=== PATIENT | female | born 1985 | race Caucasian/White ===

== ENCOUNTER 2019-02-27 05:10 | Inpatient (IN) | payer BC ==
[2019-02-27] MEDS ORDERED: METHYLERGONOVINE 0.2 MG/ML 1 ML AMP IM PRN (05:34)
[2019-02-27] MEDS ORDERED: TERBUTALINE 1 MG/ML VIAL SQ PRN (05:34)
[2019-02-27] MEDS ORDERED: LIDOCAINE 0.5% (PF) 5 MG/ML (50 ML SDV) SQ PRN (05:34)
[2019-02-27] MEDS ORDERED: CARBOPROST TROMETHAMINE 250 MCG/ML 1 ML AMP IM PRN (05:34)
[2019-02-27] MEDS ORDERED: OXYTOCIN 10 UNIT/ML 1 ML VIAL IM PRN (05:34)
[2019-02-27] MEDS ORDERED: hydrALAZINE HCL 20 MG/ML 1 ML VIAL IVP PRN ×2 (05:39)
[2019-02-27] MEDS ORDERED: LABETALOL 5 MG/ML VIAL MDV IVP PRN ×2 (05:39)
[2019-02-27] MEDS ORDERED: LACTATED RINGERS 1,000 ML IV SCH (05:45)
[2019-02-27 06:01] VITALS: BMI 47.2
[2019-02-27 06:08] LABS: Basophils % (A) 0 %; Eosinophils # (A) 0.1 k/uL (0-0.7); Eosinophils % (A) 1 %; HCT 32.7 % (34.0-46.0); Lymphocytes # (A) 1.7 k/uL (1.0-4.8); Lymphocytes % (A) 17 %; MCH 28.8 pg (25.0-35.0); MCHC 33.6 g/dL (31.0-37.0); MCV 85.9 fL (80.0-100.0); Mean Platelet Volume 9.1; Monocytes # (A) 0.4 k/uL (0-1.0); Monocytes % (A) 4 %; Neutrophils # (A) 7.5 k/uL (1.3-7.7); Neutrophils % (A) 76 %; Platelet Count 288 k/uL (150-450); RBC 3.81 m/uL (3.80-5.40); RDW 14.2 % (11.5-15.5); WBC 9.9 k/uL (3.8-10.6)
[2019-02-27] MEDS ORDERED: hydrALAZINE HCL 20 MG/ML 1 ML VIAL IVP STA (06:19)
[2019-02-27] MEDS: OXYTOCIN 30 UNITS/500 ML NS 30 UNIT in SALINE 1 500ML.BAG IV SCH (06:21)
[2019-02-27] MEDS ORDERED: CITRIC ACID-SODIUM CITRATE 15 ML CUP PO ONE (06:57)
[2019-02-27 07:02] LABS: INR 0.8 (<1.2); Partial Thromboplastin Time 22.8 sec (22.0-30.0); Prothrombin Time 9.3 sec (9.0-12.0)
[2019-02-27] MEDS ORDERED: CLINDAMYCIN 900 MG in DEXTROSE 5% IN WATER 50 ML IVPB STA ×2 (07:02)
[2019-02-27] MEDS ORDERED: ONDANSETRON 4 MG/2 ML VIAL ONE (07:15)
[2019-02-27] MEDS ORDERED: LACTATED RINGERS 1,000 ML BAG IV ONE (07:15)
[2019-02-27] MEDS ORDERED: KETOROLAC 30 MG/ML 1 ML VIAL ONE (07:15)
[2019-02-27] MEDS ORDERED: MORPHINE SULFATE (PF) 0.3 MG/0.3 ML SYR ONE (07:15)
[2019-02-27] MEDS ORDERED: OXYTOCIN 10 UNIT/ML 1 ML VIAL ONE (07:15)
[2019-02-27] MEDS ORDERED: ePHEDrine SULFATE/0.9% NACL/PF 50 MG/5 ML SYRINGE IV ONE (07:15)
[2019-02-27] MEDS ORDERED: NALBUPHINE 10 MG/ML (1 ML AMP) ONE (07:15)
--- NOTE | 2019-02-27 07:17 | P.HPOB ---
History of Present Illness H&P Date: 02/27/19 Chief Complaint: My water broke at 4:00 this morning This is a 33-year-old female 1 para 0 EDC 03/08/2019 at 38-5/7 weeks' gestation. Patient presented with a history of her water breaking this morning, clear fluid. She is having no uterine contractions. She denies headache, visual changes or right upper quadrant pain. She denies problems with blood pressure during the . history is significant for blood type A positive, rubella status immun e. VDRL testing, urine culture, hepatitis B surface antigen, HIV testing, gonorrhea and chlamydia cultures, group B strep cultures all negative. One-hour Glucola elevated, 3 hour GTT within normal limits. Past medical history is significant for kidney reflux. Past surgical history is negative. Current medications vitamins daily. ALLERGIES include penicillin to which reports severe body hives. Family history significant for hypertension, heart attack, aneurysm. Social history patient is single, boyfriend is present and involved, she is an staff accountant, she has never been a smoker, she denies alcohol or drug use. On exam this is a pleasant white female, 5 foot 6 inches, 292 pounds, blood pressure on admission 181/100. Repeat blood pressure 184/110. 10 mg of hydralazine given, repeat blood pressure 187/92. Second 10 mg of hydralazine given, blood pressure 188/86. Chest is clear in all plascencia. HEENT exam is negative. Abdomen is obviously gravid with a large fundal height, vertex presentation by Prem's. Cervix is 3 cm dilated, 80% effaced, -3 station. Vertex presentation. heart rate is consistent with reactive NST. Extremities reveal +1 edema, +2 to +3 lower extremity reflexes. Impression: 38-5/7 weeks intrauterine , spontaneous amniorrhexis, maternal obesity and suspected large for gestational age fetus. Gestational Hypertension, not responding to intravenous medication. Plan: AST, ALTs, uric acid, PT PTT drawn with admitting labs. We will proceed at this time with primary low transverse section. I do not believe it is in the patient's best interest to labor with blood pressures in this range. All risks benefits and alternatives have been discussed. Anesthesia and nursing staff present and aware. Review of Systems Constitutional: Reports as per HPI Past Medical History Past Medical History: No Reported History History of Any Multi-Drug Resistant Organisms: None Reported Additional Past Surgical History / Comment(s): [place] teeth Past Anesthesia/Blood Transfusion Reactions: No Reported Reaction Past Psychological History: No Psychological Hx Reported Smoking Status: Never smoker Past Drug Use History: None Reported - Past Family History Mother Family Medical History: Hypertension Medications and Allergies Home Medications Medication Instructions Recorded Confirmed Type Pnv,Calcium 72/Iron/Folic Acid 1 dose PO DAILY 02/27/19 02/27/19 History [ Plus Tablet] Allergies Allergy/AdvReac Type Severity Reaction Status Date / Time Penicillins Allergy Rash/Hives Verified 02/27/19 05:15 Exam Vital Signs Temp Pulse Resp BP Pulse Ox 02/27/19 05:53 97.1 F L 76 16 181/100 97 02/27/19 05:35 97.1 F L 76 16 181/100 97 Intake and Output 02/26/19 02/27/19 02/27/19 22:59 06:59 14:59 Other: # Voids 1 Weight 132.721 kg See dictation under HPI. Results Result Diagrams: 02/27/19 05:40 Abnormal Lab Results - Last 24 Hours (Table) 02/27/19 02/27/19 Range/Units 05:40 05:40 Hgb 11.0 L (11.4-16.0) gm/dL Hct 32.7 L (34.0-46.0) % AST 39 H (14-36) U/L ALT 57 H (9-52) U/L Assessment and Plan Assessment: 38-5/7 weeks intrauterine , malignant hypertension not responding to hydralazine IV push 2. Maternal morbid obesity. Suspected large for gestational age fetus. Plan: Primary low transverse section. Strong consideration will be given to magnesium sulfate pending progress. Time with Patient: Greater than 30
[2019-02-27] MEDS ORDERED: MAGNESIUM SULFATE GM 6 GM in SODIUM CHLORIDE 0.9% 100 ML IVPB ONE (07:55)
[2019-02-27] MEDS ORDERED: ZOLPIDEM 5 MG TAB PO PRN (08:10)
[2019-02-27] MEDS ORDERED: ONDANSETRON 4 MG/2 ML VIAL IVP PRN (08:10)
[2019-02-27] MEDS ORDERED: diphenhydrAMINE 50 MG/ML 1 ML VIAL IVP PRN ×2 (08:10)
[2019-02-27] MEDS ORDERED: METOCLOPRAMIDE 5 MG/ML 2 ML VIAL IVP PRN (08:10)
[2019-02-27] MEDS ORDERED: NALOXONE 0.4 MG/ML 1 ML VIAL IV PRN (08:10)
[2019-02-27] MEDS ORDERED: diphenhydrAMINE 25 MG CAP PO PRN ×2 (08:10→19:45)
[2019-02-27] MEDS ORDERED: ACETAMINOPHEN TAB 325 MG TAB PO PRN (08:10)
[2019-02-27] MEDS ORDERED: diphenhydrAMINE 50 MG CAP PO PRN (08:10)
[2019-02-27] MEDS ORDERED: HYDROcodone/APAP 5-325MG 1 EACH TAB PO PRN (08:10)
--- NOTE | 2019-02-27 08:10 | P.OP ---
Date of Procedure: 02/27/19 Preoperative Diagnosis: Severe preeclampsia, 38-5/7 weeks' intrauterine , maternal obesity, large for gestational age fetus Postoperative Diagnosis: Liveborn male infant, left occiput transverse, 9 lbs. 2 oz. or 4130 g Procedure(s) Performed: Primary low transverse section Anesthesia: spinal Surgeon: Jing Rose Adjunct Professor Of Law #1: Socrates Barker Estimated Blood Loss (ml): 600 IV fluids (ml): 600 Urine output (ml): 100 Pathology: other (Placenta) Condition: stable Disposition: PACU Operative Findings: Liveborn male , left occiput transverse, 9 lbs. 2 oz., 4130 g, normal- appearing tubes and ovaries bilaterally Description of Procedure: Patient was brought to the operating suite with a blood pressure of 188/86 after 2 doses of hydralazine. Saravia catheter placed to direct drainage, 900 mg clindamycin given. Spinal with Duramorph is placed per the anesthesia staff and the patient is put in the dorsal supine position with left lateral uterine displacement. Abdomen is prepped and draped in usual sterile fashion. The appropriate timeout is performed. The analgesia is checked and noted to be adequate. A low transverse skin incision is made in this is carried down through the subcutaneous tissue which is approximately 12 cm in depth. Fascia is isolated, scored, and extended bilaterally with curved Mayer scissors. Peritoneum is next identified and incised, there is no bowel or bladder involvement. The large ring retractor is placed for excellent exposure. Bladder is at all times very low and away from the operative field. A low transverse uterine incision is made in this is extended bluntly. The 's head is delivered in the left occiput transverse position. There is no nuchal cord noted. Patient is officially delivered of a liveborn male at 0735 hours. Umbilical cord is doubly clamped and ligated. The oropharynx, nasopharynx, and external nares were all bulb suctioned. scores of 8 and 9 at one and 5 minutes respectively are given. weighs 9 lbs. 2 oz. or 4130 g. Placenta is delivered spontaneously, it is inspected and noted to be intact with trivascular cord. It is sent to pathology for evaluation. At this time the uterus is externalized and massaged. It is swept clean with a sterile sponge to avoid any retained products of conception. The uterus is closed in a two-step fashion, first layer running locking with 0 Vicryl, second layer imbricated with same. Excellent reapproximation is noted. Bilateral tubes and ovaries are inspected and noted to be normal. The abdomen is suction ed with suction on guard and the uterus is placed back into the abdominal cavity. Bilateral gutters are inspected and cleaned. Once again the uterine incision is inspected, noted to be clean and dry. Peritoneum was allowed to close by secondary intention. Fascia is closed in a running manner of 0 Vicryl, with over ligation in the midline. Subcutaneous tissue was quite deep, it is irrigated with sterile saline, inspected, noted to be clean and dry. Subcutaneous tissue is reapproximated with 3-0 Vicryl in a running fashion. 4-0 undyed Monocryl issues for final skin closure. Steri-Strips and Mastisol are applied to the wound. Uterus is massaged for 200 mL of blood and clot. Saravia is noted to be draining clear urine. Patient is brought back to the recovery room in very good condition with stable vital signs including blood pressure 122/57, pulse 78, 98% O2 saturation. Liver enzymes are noted to be elevated, therefore I will treat the patient with magnesium sulfate 6 g loading dose, then 2 g per hour for 24 hours. Patient and her are requesting circumcision further son.
[2019-02-27] MEDS: MAGNESIUM SULFATE-WATER PMX 20 GM in WATER FOR INJECTION 1 500ML.BAG IV SCH ×3 (09:01→22:25)
[2019-02-27] MEDS ORDERED: SIMETHICONE 80 MG CHEWABLE PO PRN (19:45)
[2019-02-27] MEDS: SENNOSIDES-DOCUSATE SODIUM 1 EACH TAB PO SCH (19:58)
[2019-02-27] MEDS: LACTATED RINGERS 1,000 ML IV SCH (21:38)
[2019-02-27] MEDS ORDERED: MAGNESIUM SULFATE-D5W PMX 1 GM in DEXTROSE/WATER 1 100ML.BAG IVPB ONE (22:18)
[2019-02-28] MEDS: IBUPROFEN 600 MG TAB PO PRN ×4 (00:58→21:05)
[2019-02-28 06:12] LABS: Basophils % (A) 0 %; Eosinophils # (A) 0.1 k/uL (0-0.7); Eosinophils % (A) 1 %; HCT 24.3 % (34.0-46.0); Lymphocytes # (A) 1.6 k/uL (1.0-4.8); Lymphocytes % (A) 14 %; MCH 27.6 pg (25.0-35.0); MCHC 31.8 g/dL (31.0-37.0); MCV 86.8 fL (80.0-100.0); Mean Platelet Volume 8.7; Monocytes # (A) 0.5 k/uL (0-1.0); Monocytes % (A) 5 %; Neutrophils # (A) 8.7 k/uL (1.3-7.7); Neutrophils % (A) 79 %; Platelet Count 229 k/uL (150-450); RDW 14.5 % (11.5-15.5)
[2019-02-28 06:15] LABS: HGB 7.7 gm/dL (11.4-16.0)
[2019-02-28] MEDS: SENNOSIDES-DOCUSATE SODIUM 1 EACH TAB PO SCH ×2 (08:11→21:04)
[2019-02-28 08:45] VITALS: RESP 16
[2019-02-28] MEDS: OXYTOCIN 30 UNITS/500 ML NS 30 UNIT in SALINE 1 500ML.BAG IV SCH (09:03)
--- NOTE | 2019-02-28 10:13 | P.PNOBGPC ---
Subjective - Subjective Interval history: The patient denies any signs or symptoms of preeclampsia and magnesium has been stopped. There is no headache, scotomata, or significant edema present. She is hungry and tolerating liquids but has not yet passed flatus. Patient reports: Reports appetite normal, Reports voiding normally, Reports pain well controlled, Reports ambulating normally : doing well Objective - Vital Signs Latest vital signs: Vital Signs Temp Pulse Resp BP Pulse Ox 02/28/19 08:00 98 F 74 16 136/77 98 02/28/19 04:00 98.4 F 75 14 138/72 96 02/28/19 00:00 98.1 F 75 14 150/74 97 02/27/19 22:00 14 02/27/19 19:30 96.7 F L 81 16 127/68 98 02/27/19 16:00 97.9 F 77 18 135/73 97 02/27/19 12:00 98.5 F 66 18 131/59 Intake and Output 02/27/19 02/28/19 02/28/19 22:59 06:59 14:59 Intake Total 2040 237.5 Output Total 700 2900 1800 Balance 1340 -2900 -1562.5 Intake: IV 1500 237.5 Lactated Ringers 1,000 ml 1000 @ 125 mls/hr IV .Q8H ISSA Rx#:[id number] Magnesium Sulfate-Water 500 237.5 Pmx 20 gm In Water For Injection 1 500ml.bag @ 2 GM/HR 50 mls/hr IV .Q10H ISSA Rx#:[id number] Intake, IV Titration 540 Amount Magnesium Sulfate-Water 540 Pmx 20 gm In Water For Injection 1 500ml.bag @ 2 GM/HR 50 mls/hr IV .Q10H ISSA Rx#:[id number] Output: Urine 700 2900 1800 Uretheral (Saravia) 500 - Exam Extremities: Present: normal Abdomen: Present: normal appearance, soft. Absent: distention, tenderness Incision: Present: normal, dry, intact Uterus: Present: normal, firm (The uterine fundus is tonic and nontender around the umbilicus.) - Labs Labs: Abnormal Lab Results - Last 24 Hours (Table) 02/28/19 Range/Units 05:51 WBC 11.0 H (3.8-10.6) k/uL RBC 2.80 L (3.80-5.40) m/uL Hgb 7.7 L D (11.4-16.0) gm/dL Hct 24.3 L (34.0-46.0) % Neutrophils # 8.7 H (1.3-7.7) k/uL Assessment and Plan (1) Status post section Current Visit: Yes Status: Acute Code(s): Z98.891 - HISTORY OF UTERINE SCAR FROM PREVIOUS SURGERY SNOMED Code(s): 611204641 (2) Pre-eclampsia Current Visit: Yes Status: Acute Code(s): O14.90 - UNSPECIFIED PRE- ECLAMPSIA, UNSPECIFIED TRIMESTER SNOMED Code(s): 732893987 Plan: Blood pressures have essentially normalized with no medications. She has no secondary signs of preeclampsia at this time. I will advance her diet and continue routine postoperative and care and anticipate discharge tomorrow barring no complications. There are no signs and symptoms of orthostasis despite her relatively low hemoglobin. Iron sulfate will be started in the outpatient phase.
[2019-03-01 02:42] VITALS: PULSE 90
[2019-03-01] MEDS: LACTATED RINGERS 1,000 ML IV SCH ×2 (03:32→03:33)
[2019-03-01] MEDS: IBUPROFEN 600 MG TAB PO PRN (06:18)
--- NOTE | 2019-03-01 06:51 | P.PN ---
Progress Note - Text Progress Note Date: 02/28/19 Post spinal with Duramorph neuroaxial blockade for Patient evaluated at the bedside denies any active complaints of headaches or itching Site looks clean dry and intact without signs of infection Patient ambulating about lower extremity weakness Patient recovering as expected anesthesia signing off
[2019-03-01 08:18] VITALS: BP 153/92; TEMP 98.1
--- NOTE | 2019-03-01 08:54 | P.DS ---
Providers Date of admission: 02/27/19 05:31 Expected date of discharge: 03/01/19 Attending physician: Jimmy Madsen Primary care physician: Jimmy Madsen - Discharge Diagnosis(es) (1) Status post section Current Visit: Yes Status: Acute (2) Pre-eclampsia Current Visit: Yes Status: Acute Hospital Course: The patient is a 33-year-old 1 para 0 admitted at 38-5/7 weeks by good dating parameters perches admitted with documented spontaneous rupture of membranes for clear fluid and without contractions. On labor and delivery she presented with fairly significantly elevated blood pressures. She additionally had a known large baby. Given her significantly elevated blood pressures, labs were done for preeclampsia which did show some mildly elevated liver function tests. Given her remoteness from delivery as well as the need for treatment of her high blood pressure making the diagnosis of severe preeclampsia as well as the concern for a macrosomic infant, the decision was made to proceed with primary low-transverse section. The patient was taken the operating room and was delivered by primary low-transverse section of a viable 9 lbs. 2 oz. baby boy with Apgars of 8 at 1 minute and 9 at 5 minutes. Her and postoperative course was unremarkable and she diuresed relatively quickly. Blood pressures did remain in the normal range and did not require treatment further though she was on magnesium sulfate for the first 24 hours fol lowing delivery. She was deemed stable for discharge by and postoperative day #2 and was discharged home to follow-up in the office in 2 weeks for an incision check and 6 weeks routinely. Discharge instructions included calling for any significantly increased bleeding or foul-smelling lochia, significantly increased fever abdominal pain, perineal complaints, breast complaints, incisional complaints, or anything else that concerned her. She is additionally instructed to have nothing in vagina for at least 6 weeks time to include intercourse and to abstain from any heavy lifting over the same period of time. She was lastly instructed to do no driving until off of all pain medications or 2 weeks' time, whichever comes first. She understood her instructions and agrees to follow up as noted above. Discharge medications included continued vitamins as she has opted to breast-feed. She additionally was provided a prescription for Tylenol 3, 1-2 by mouth every 6 hours when necessary pain, #20 dispensed with no refills. She was also to take iron sulfate 325 mg daily for a month in order to recoup her hemoglobin. Discharge hemoglobin and hematocrit were 7.7 and 24.3 respectively. Maternal blood type is A+ and rubella status is immune. Procedures: #1. Antihypertensive therapy #2. Primary low-transverse section #3. Magnesium sulfate seizure prophylaxis Patient Condition at Discharge: Stable Plan - Discharge Summary New Discharge Prescriptions: No Action Pnv,Calcium 72/Iron/Folic Acid [ Plus Tablet] 1 dose PO DAILY Discharge Medication List Pnv,Calcium 72/Iron/Folic Acid [ Plus Tablet] 1 dose PO DAILY 02/27/19 [History] Follow up Appointment(s)/Referral(s): Jimmy Madsen MD [Primary Care Provider] - 2 Weeks Discharge Disposition: HOME SELF-CARE
[2019-03-01] MEDS: SENNOSIDES-DOCUSATE SODIUM 1 EACH TAB PO SCH (13:15)
== END 2019-03-01 13:15 | disposition home or self-care (01) | DRG 788 ==
LOC: FBPOP 05:10 → 4FBP 05:31
PROVIDERS: ADMIT Obstetrics & Gynecology; ATTEND Obstetrics & Gynecology
PROC: 10D00Z1 Extraction of Products of Conception, Low, Open Approach (ICD-10-PCS; principal; 2019-02-27 07:00)
DX: O14.14 Severe pre-eclampsia complicating childbirth (principal); O36.63X0 Maternal care for excessive fetal growth, third trimester, not applicable or unspecified; O99.214 Obesity complicating childbirth; E66.01 Morbid (severe) obesity due to excess calories; Z37.0 Single live birth; Z3A.38 38 weeks gestation of pregnancy; Z88.0 Allergy status to penicillin; Z82.49 Family history of ischemic heart disease and other diseases of the circulatory system
CPT/HCPCS: 59025; 84112; 84450; 84460; 84550; 85025; 85610; 85730; 86850; 86900; 86901; 88307; 99213